=== PATIENT | male | born 1990 | race Caucasian/White ===

== ENCOUNTER 2019-10-04 07:15 | Emergency (ER) | payer MEDICAID ==
[~2019-10-04] VITALS: Ht 165.1 cm; Wt 59.0 kg
[2019-10-04 07:18] VITALS: Ht 165.1 cm; Wt 59.0 kg
[2019-10-04 08:47] VITALS: BP 114/77
== END 2019-10-04 08:47 | disposition home or self-care (01) ==
LOC: ED 07:15
DX: S21.91XA Laceration without foreign body of unspecified part of thorax, initial encounter (principal); S41.112A Laceration without foreign body of left upper arm, initial encounter; Z88.0 Allergy status to penicillin; X99.8XXA Assault by other sharp object, initial encounter; Y93.89 Activity, other specified; Y92.89 Other specified places as the place of occurrence of the external cause; Y99.8 Other external cause status
CPT/HCPCS: Q0092

== ENCOUNTER 2019-11-28 15:51 | Emergency (ER) | payer MEDICAID ==
[~2019-11-28] VITALS: Ht 165.1 cm; Wt 59.0 kg
[2019-11-28 15:59] VITALS: BP 119/71; Ht 165.1 cm; Wt 59.0 kg
== END 2019-11-28 16:14 | disposition home or self-care (01) ==
LOC: ED 15:51
DX: L03.114 Cellulitis of left upper limb (principal); S21.112D Laceration without foreign body of left front wall of thorax without penetration into thoracic cavity, subsequent encounter; Y04.8XXD Assault by other bodily force, subsequent encounter; Z88.0 Allergy status to penicillin